=== PATIENT | male | born 1940 | race Caucasian/White ===

== ENCOUNTER 2023-10-09 13:46 | Outpatient (CLI) | payer MEDICARE, MEDICAID, SELFPAY ==
--- NOTE | 2023-10-09 13:51 | MM_ITS ---
WS: [id number] DI[facility]NOSTIC BILATERAL DIGITAL BREAST TOMOSYNTHESIS MAMMOGRAPHY WITH CAD Bilateral breast ultrasound, limited HISTORY: MASTODYNIA, male patient. COMPARISON: None available. TECHNIQUE: Bilateral craniocaudad, mediolateral oblique, and mediolateral views are submitted with to mosynthesis and SM. Spot compression bilateral CC views. Computer aided detection utilized. Breast composition: Dense fibroglandular densities posterior to each nipple but greatest on the RIGHT . Consistent with gynecomastia is. Ultrasound will be performed to exclude underlying neoplasm. Bilateral breast ultrasound. Ultrasound is directed to the subareolar regions in the area of pain. 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 The RIGHT breast area measures 2.9 x 0.7 x 3.0 cm. The gynec omastia on the LEFT is 2.4 x 1.0 x 2.6 cm. IMPRESSION: MM/[place] [id number] BI-RADS: 2-Benign FOLLOW UP: See Report Bilateral gynecomastia is seen in this male patient. This corresponds to the ar ea of pain.
== END 2023-10-09 13:47 | disposition home or self-care (01) ==
LOC: RAD 13:46
PROVIDERS: PCP Emergency Medicine; Visit Provider Family Medicine
DX: N64.4 Mastodynia (principal); N62 Hypertrophy of breast
CPT/HCPCS: 76642; 77062; G0279